=== PATIENT | female | born 1940 | race Caucasian/White ===

== ENCOUNTER 2023-01-26 10:25 | Outpatient (CLI) | payer MEDICARE, BC, SELFPAY | END 2023-01-26 10:26 | disposition home or self-care (01) | LOC: INJ CL 10:30 | PROVIDERS: PCP Internal Medicine; Visit Provider Family Medicine | DX: M54.16 Radiculopathy, lumbar region (principal); M51.36 Other intervertebral disc degeneration, lumbar region | CPT/HCPCS: 62323; J0702; Q9966 ==

== ENCOUNTER 2024-07-18 13:25 | Outpatient (CLI) | payer MEDICARE, BC, SELFPAY | END 2024-07-18 13:26 | disposition home or self-care (01) | LOC: INJ CL 13:26 | PROVIDERS: PCP Internal Medicine; Visit Provider Family Medicine | DX: M54.16 Radiculopathy, lumbar region (principal); M47.816 Spondylosis without myelopathy or radiculopathy, lumbar region; M71.38 Other bursal cyst, other site | CPT/HCPCS: 64483; 64493; J1100; Q9966 ==